=== PATIENT | male | born 1935 | race Caucasian/White ===

== ENCOUNTER 2024-03-18 13:05 | Emergency (ER) | payer OTHER, MEDICARE ==
[2024-03-18 14:08] LABS: Absolute Lymphocytes (CBC) 0.5 K/uL (0.7-4.9); Absolute Monocytes 1.1 K/uL (0.1-1.3); Absolute Neutrophil 13.4 K/uL (1.8-8.0); Basophils % 0.1 % (0-1.3); Hematocrit 30.5 % (39.6-49.0); Hemoglobin 10.1 g/dL (13.6-17.9); Lymphocytes % 3.6 % (15.3-44.8); MCHC 33.1 g/dL (32.0-36.0); MCV 93.9 fL (80-100); MPV 8.1 fL (7.6-11.3); Monocytes % 7.4 % (3.3-12.3); Neutrophils % 88.9 % (41.7-73.7); Platelets 188 thou/uL (152-406); RBC Red Blood Cell Count 3.25 M/uL (4.33-5.43); Red Cell Distribution Width 14.9 % (12.1-15.2)
[2024-03-18 14:10] LABS: PT Prothrombin Time 12.4 SECONDS (9.4-12.5); Protime INR 1.11
[2024-03-18 14:33] LABS: Albumin 2.5 g/dL (3.4-5.0); Albumin/Globulin Ratio 0.8 (1.1-1.8); Anion Gap 12.2 mEq/L (5.0-15.0); Bilirubin Direct 0.3 mg/dL (0-0.2); Bilirubin Indirect, Calculated 0.3 mg/dL (0.2-0.8); Bilirubin Total 0.6 mg/dL (0.2-1.0); Globulin 3.3 g/dL (2.3-3.5); Magnesium 1.6 mg/dL (1.6-2.4); Potassium 4.2 mEq/L (3.5-5.1); Protein, Total 5.8 g/dL (6.4-8.2); Troponin High Sensitivity 21.5 pg/mL (<58.9)
--- NOTE | 2024-03-18 14:54 | RAD REPORT ---
EXAMINATION: ONE VIEW CHEST XR CLINICAL INDICATION: Male, 88 years old.,weakness TECHNIQUE: Frontal chest projection is submitted. Examination is limited by patient positioning and t echnique. COMPARISON: 11/01/2013 FINDINGS: Patchy right mid to lower lung opacities. Central interstitial prominence. Decreased inspiratory effo rt limits evaluation. The right chest wall Port-A-Cath in place. Left pacer/AICD in place. No pneumothorax or sizable effusion. The heart is normal in size. Mediastinal contours are unchanged wit h sequelae of median sternotomy. IMPRESSION: Findings suggesting central venous congestion. Right mid to lower lung patchy opacities raise concern for pneumonia until proven otherwise.
[2024-03-18 14:55] LABS: Specific Gravity 1.026 (1.005-1.030); Sqamous Epithelial None Seen /HPF (None Seen); Urine Bacteria <20 /HPF (<20); Urine Bilirubin NEGATIVE (Negative); Urine Blood Negative (Negative); Urine Clarity Clear (Clear); Urine Color Yellow (Yellow); Urine Culture Reflex Order NOT NEEDED; Urine Glucose NEGATIVE (Negative); Urine Ketones NEGATIVE (Negative); Urine Micro Reflex YN NO BILL MICROSCOPIC; Urine Mucus Slight /HPF (None Seen); Urine Nitrite NEGATIVE (Negative); Urine Protein NEGATIVE (Negative); Urine RBC <5 /HPF (None Seen); Urine Urobilinogen Normal (Normal); Urine WBC <5 /HPF (<5)
[2024-03-18 15:00] LABS: Atypical Lymphocytes 2 %; Band Neutrophils 1 % (0-1); Blood Morphology Comment NOT SEEN (NOT SEEN); Differential Total Cells Count 100; Lymphocytes 5 % (15-42); Monocytes 2 % (0-10); Platelet Estimate ADEQ; Segmented Neutrophils 89 % (40-80); Smudge Cells PRESENT
--- NOTE | 2024-03-18 15:03 | RAD REPORT ---
EXAM: CT Head Brain Wo Cont HISTORY: WEAKNESS COMPARISON: 11/01/2013 TECHNIQUE: Multiple contiguous axial images were obtained for a CT of the brain without contrast. Sag ittal and coronal reformats were performed. One or more of the following dose reduction techniques were used: Automated exposure control, adjus tment of the mA and kV according to patient size, and iterative reconstruction. Unless otherwise specified, incidental findings do not require dedicated imaging follow-up. FINDINGS: No evidence of hydrocephalus, intracranial hemorrhage, or extra-axial fluid collection. Mild diffuse parenchymal atrophy with mild periventricular and deep white matter chronic microvascul ar ischemic changes present. No evidence of an acute infarct. The calvarium is intact. The visualized paranasal sinuses and mastoid air cells are essentially clear . IMPRESSION: No evidence of acute intracranial abnormality.
--- NOTE | 2024-03-18 15:51 | EDPHYS ---
Physician Documentation [facility] Name: Rohan Rico Sr Age: 88 yrs Sex: Male : 1935 Arrival Date: 03/18/2024 Time: 13:05 Bed 19 Private MD: ED Physician Osmar Rowe HPI: 03/18 13:25 This 88 yrs old Male presents to ER via EMS with complaints of Fall Injury, General cp Weakness. 13:25 Details of fall: The patient fell from an upright position. cp 13:25 Onset: The symptoms/episode began/occurred today, 2 episode when getting out of bed. cp Associated injuries: The patient sustained no obvious injury. Historical: - Allergies: 13:17 PENICILLINS; me1 - PMHx: 13:17 Hypertensive disorder; Hypothyroidism; Gastroesophageal reflux disease; me1 Hypercholesterolemia; - Immunization history:: Adult Immunizations up to date. - Infectious Disease History:: Denies. - Social history:: Smoking status: Patient denies any tobacco usage or history of. ROS: 13:30 Constitutional: Negative for fever, cp 13:30 Cardiovascular: Negative for chest pain, edema, palpitations, cp 13:30 Respiratory: Negative for cough, 13:30 Abdomen/GI: Negative for abdominal pain, black/tarry stool, rectal bleeding, 13:30 Neuro: Positive for weakness, Negative for altered mental status, headache, syncope, Exam: 13:33 Constitutional: The patient appears in no acute distress, alert, awake, cp non-diaphoretic, non-toxic, well developed, well nourished, 13:33 Head/Face: Normocephalic, atraumatic. cp 13:33 Eyes: Periorbital structures: appear normal, Conjunctiva: normal, no exudate, no injection, Sclera: no appreciated abnormality, Lids and lashes: appear normal, bilaterally, 13:33 ENT: External ear(s): are unremarkable, Nose: is normal, Mouth: Lips: moist, Oral mucosa: moist, Posterior pharynx: Airway: no evidence of obstruction, patent, 13:33 Chest/axilla: Inspection: normal, 13:33 Cardiovascular: Rate: normal, Rhythm: regular, Edema: is not appreciated, JVD: is not appreciated, 13:33 Respiratory: the patient does not display signs of respiratory distress, Respirations: normal, no use of accessory muscles, no retractions, labored breathing, is not present, Breath sounds: are clear throughout, no decreased breath sounds, no stridor, no wheezing, 13:33 Abdomen/GI: Inspection: abdomen appears normal, Palpation: abdomen is soft and non-tender, in all quadrants, 13:33 Back: pain, is absent, 13:33 Skin: cellulitis, is not appreciated, no rash present. 13:33 Neuro: Orientation: to person, place \T\ time. Mentation: able to follow commands, Motor: moves all fours, no focal deficits, 14:10 ECG was reviewed by the Attending Physician. Vital Signs: 13:09 BP 118 / 51; Pulse 78; Resp 16; Temp 98.6; Pulse Ox 100% on R/A; Weight 69.85 kg; me1 Height 5 ft. 11 in. ; 13:30 BP 124 / 47; Pulse 78; Resp 16; Temp 99.6(A); Pulse Ox 97% on R/A; me1 14:00 BP 136 / 57; Pulse 79; Resp 13; Pulse Ox 96% on R/A; me1 15:00 BP 135 / 85; Pulse 75; Resp 13; Pulse Ox 97% ; me1 16:00 BP 138 / 84; Pulse 88; Resp 17; Pulse Ox 97% ; me1 17:00 BP 128 / 53; Pulse 72; Resp 15; Pulse Ox 96% ; me1 18:00 BP 131 / 63; Pulse 74; Resp 17; Pulse Ox 97% ; me1 19:00 BP 133 / 65; Pulse 72; Resp 13; Temp 98.4; Pulse Ox 96% on R/A; me1 20:00 BP 122 / 64; Pulse 75; Resp 14; Pulse Ox 98% ; me1 20:30 BP 116 / 65; Pulse 75; Resp 17; Temp 98.2; Pulse Ox 96% ; nd1 13:09 Body Mass Index 21.48 (69.85 kg, 180.34 cm) [facility] [place]DM: 13:11 Medical Screening Exam initiated cp 16:00 Data reviewed: vital signs, nurses notes, EKG, radiologic studies, CT scan, plain films. 03/18 13:22 Order name: Basic Metabolic Panel; Complete Time: 14:34 03/18 14:34 Interpretation: Normal except: CL 114; BUN 30; CRE 1.70; GFR 38. cp 03/18 13:22 Order name: CBC with Diff; Complete Time: 15:47 cp 03/18 14:33 Interpretation: Normal except: WBC 15.10; RBC 3.25; HGB 10.1; HCT 30.5; KURT% 88.9; LYM% cp 3.6; NEUT A 13.4; LYMA 0.5. 03/18 13:22 Order name: LFT's; Complete Time: 14:34 cp 03/18 15:53 Interpretation: Normal except: BILID 0.3; TP 5.8; ALB 2.5; A/G 0.8. cp 03/18 13:22 Order name: Magnesium; Complete Time: 14:34 cp 03/18 13:22 Order name: NT PRO-BNP; Complete Time: 14:34 cp 03/18 15:54 Interpretation: Reviewed. cp 03/18 13:22 Order name: PT-INR; Complete Time: 14:33 cp 03/18 13:22 Order name: Troponin HS; Complete Time: 14:34 cp 03/18 13:22 Order name: Urinalysis W/Microscopic; Complete Time: 15:47 cp 03/18 14:11 Order name: Manual Differential; Complete Time: 15:47 EDMS 03/18 14:37 Order name: Blood Culture Adult (2) cp 03/18 14:37 Order name: Lactate w/ 2H reflex if indic. cp 03/18 13:22 Order name: CT Head Brain wo Cont; Complete Time: 15:47 cp 03/18 13:22 Order name: XRAY Chest (1 view); Complete Time: 15:47 cp 03/18 15:48 Interpretation: Report review. cp 03/18 14:35 Order name: CT Chest Abdomen Pelvis W/O Contrast; Complete Time: 15:58 cp 03/18 13:22 Order name: EKG; Complete Time: 13:23 cp 03/18 13:22 Order name: Cardiac monitoring; Complete Time: 14:15 cp 03/18 13:22 Order name: EKG - Nurse/Tech; Complete Time: 14:15 cp 03/18 13:22 Order name: IV Saline Lock; Complete Time: 13:23 cp 03/18 13:22 Order name: Labs collected and sent; Complete Time: 13:59 cp 03/18 13:22 Order name: O2 Per Protocol; Complete Time: 13:23 cp 03/18 13:22 Order name: O2 Sat Monitoring; Complete Time: 13:23 cp 03/18 14:37 Order name: Accucheck; Complete Time: 15:52 cp 03/18 14:37 Order name: IV Saline Lock - Large Bore; Complete Time: 14:55 cp 03/18 14:37 Order name: Vital Signs; Complete Time: 14:55 cp EC:10 Rate is 78 beats/min. Rhythm is regular. NH interval is normal. QRS interval is normal. cp QT interval is normal. T waves are Inverted in lead aVR. Interpreted by me. Reviewed by me. Administered Medications: 13:23 Drug: NS 0.9% IV 1000 ml IV at 1000 ml once; to be given as a bolus over 60 minutes me1 Route: IV; Rate: 1000 ml; Site: right forearm; 13:59 Follow up: Response: No adverse reaction; IV Status: Completed infusion; IV Intake: me1 1000ml 16:06 Drug: levofloxacin IVPB 750 mg 150 ml IVPB once over 90 mins Volume: 150 ml; Route: me1 IVPB; Infused Over: 90 mins; Site: right antecubital; 17:36 Follow up: Response: No adverse reaction; IV Status: Completed infusion; IV Intake: me1 150ml Disposition: 03/19 09:09 Co-signature as Attending Physician, Osmar Rowe MD I reviewed the patient's care rn provided by the Advanced Practice Provider and agree with the diagnosis and treatment plan. Disposition Summary: 03/18/24 15:50 Transfer Ordered Notes: Transfer Location: [facility] cp Reason: Higher level of care cp Condition: Stable cp Problem: new cp Symptoms: have improved cp Accepting Physician: DR Gates(03/18/24 20:48) me1 Diagnosis - Weakness cp - Pneumonia, unspecified organism cp - Ileus, unspecified cp Forms: - Medication Reconciliation Form cp - SBAR form cp Signatures: Dispatcher [employer] Osmar Hopkins MD MD rn Page, Corey, PA PA cp Jada Guerin RN RN me1 Corrections: (The following items were deleted from the chart) 03/18 13:23 13:23 Head Brain Wo Cont+CT.RAD.BRZ ordered. EDMS EDMS 13:23 13:23 BASIC METABOLIC PANEL+C.LAB.BRZ ordered. EDMS EDMS 13:23 13:23 CBC+H.LAB.BRZ ordered. EDMS EDMS 13:23 13:23 HEPATIC FUNCTION+C.LAB.BRZ ordered. EDMS EDMS 13:23 13:23 MAGNESIUM+C.LAB.BRZ ordered. EDMS EDMS 13:23 13:23 PROBNP+C.LAB.BRZ ordered. EDMS EDMS 13:23 13:23 PROTIME (+INR)+COAG.LAB.BRZ ordered. EDMS EDMS 13:23 13:23 Troponin High Sensitivity+C.LAB.BRZ ordered. EDMS EDMS 13:23 13:23 Urinalysis W/Microscopic+U.LAB.BRZ ordered. EDMS EDMS 15:59 15:50 Doctor cp cp 19:44 15:59 Doctor cp cp 20:48 19:44 DR Gates cp me1
--- NOTE | 2024-03-18 15:51 | ER ---
Nurse's Notes [facility] Name: Rohan Rico Sr Age: 88 yrs Sex: Male : 1935 Arrival Date: 03/18/2024 Time: 13:05 Bed 19 Private MD: Diagnosis: Weakness;Pneumonia, unspecified organism;Ileus, unspecified Presentation: 03/18 13:09 Chief complaint: EMS states: toned out for fall from sitting position on bed x 2 this me1 morning. No LOC. Blood thinners were stopped a few weeks ago. c/o generalized weakness. Treatment for colorectal cancer was recently stopped due to adverse reactions including rash and nausea. + orthostatic vitals. BGL 106. Patient states he hasnt eating since yesterday due to nausea. 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 Coronavirus screen: Vaccine status: Patient reports receiving the 2nd dose of the covid vaccine. Ebola Screen: No symptoms or risks identified at this time. Initial Sepsis Screen: Does the patient meet any 2 criteria? No. Patient's initial sepsis screen is negative. Does the patient have a suspected source of infection? No. Patient's initial sepsis screen is negative. Risk Assessment: Do you want to hurt yourself or someone else? Patient reports no desire to harm self or others. Onset of symptoms is unknown. 13:09 Method Of Arrival: EMS: [place] [id number] 13:09 Acuity: LORY 3 me1 Triage Assessment: 13:17 General: Appears comfortable, slender, well groomed, well developed, Behavior is calm, me1 cooperative, appropriate for age, Reports s/p fall x 2 this morning. c/o generalized weakness due to cancer and treatment. Pain: Denies pain. EENT: No signs and/or symptoms were reported regarding the EENT system. Neuro: Level of Consciousness is awake, alert, obeys commands, Oriented to person, place, time, situation, Appropriate for age. Cardiovascular: Patient's skin is warm and dry. Respiratory: Airway is patent Respiratory effort is even, unlabored, Respiratory pattern is regular, symmetrical. GI: No signs and/or symptoms were reported involving the gastrointestinal system. : No signs and/or symptoms were reported regarding the genitourinary system. Derm: Skin is healthy with good turgor, Skin is pale. Musculoskeletal: Reports generalized weakness. Injury Description: s/p fall from sitting position in bed x 2 today. Historical: - Allergies: 13:17 PENICILLINS; me1 - PMHx: 13:17 Hypertensive disorder; Hypothyroidism; Gastroesophageal reflux disease; me1 Hypercholesterolemia; - Immunization history:: Adult Immunizations up to date. - Infectious Disease History:: Denies. - Social history:: Smoking status: Patient denies any tobacco usage or history of. Screenin:21 [facility] ED Fall Risk Assessment (Adult) History of falling in the last 3 months, me1 including since admission Yes- fall prone (multiple falls) (3 pts) Confusion or Disorientation No (0 pts) Intoxicated or Sedated No (0 pts) Impaired Gait Yes (1 pt) Mobility Assist Device Used Yes (1 pt) Altered Elimination No (0 pt) Score/Fall Risk Level 3 or more points = High Risk Maintained a safe environment, Hourly rounding (assess needs \T\ fall precautionary measures) done, Used ambulatory aids as needed (educated on \T\ assisted with). Abuse screen: Denies threats or abuse. Nutritional screening: No deficits noted. Tuberculosis screening: No symptoms or risk factors identified. Assessment: 13:21 General: See triage assessment.. me1 Vital Signs: 13:09 BP 118 / 51; Pulse 78; Resp 16; Temp 98.6; Pulse Ox 100% on R/A; Weight 69.85 kg; me1 Height 5 ft. 11 in. ; 13:30 BP 124 / 47; Pulse 78; Resp 16; Temp 99.6(A); Pulse Ox 97% on R/A; me1 14:00 BP 136 / 57; Pulse 79; Resp 13; Pulse Ox 96% on R/A; me1 15:00 BP 135 / 85; Pulse 75; Resp 13; Pulse Ox 97% ; me1 16:00 BP 138 / 84; Pulse 88; Resp 17; Pulse Ox 97% ; me1 17:00 BP 128 / 53; Pulse 72; Resp 15; Pulse Ox 96% ; me1 18:00 BP 131 / 63; Pulse 74; Resp 17; Pulse Ox 97% ; me1 19:00 BP 133 / 65; Pulse 72; Resp 13; Temp 98.4; Pulse Ox 96% on R/A; me1 20:00 BP 122 / 64; Pulse 75; Resp 14; Pulse Ox 98% ; me1 20:30 BP 116 / 65; Pulse 75; Resp 17; Temp 98.2; Pulse Ox 96% ; me1 13:09 Body Mass Index 21.48 (69.85 kg, 180.34 cm) id1 ED Course: 13:09 Patient arrived in ED. me1 13:11 Shin Urias PA is PHCP. cp 13:11 Osmar Rowe MD is Attending Physician. cp 13:16 Triage completed. me1 13:17 Arm band placed on Patient placed in an exam room. me1 13:21 Patient has correct armband on for positive identification. Bed in low position. Call [facility] light in reach. Side rails up X2. Provided Education on: POC. Verbalized understanding.. Client placed on continuous cardiac and pulse oximetry monitoring. NIBP monitoring applied. classroom monitor on. Pulse ox on. NIBP on. 13:21 No provider procedures requiring assistance completed. Maintain EMS IV. Dressing me1 intact. Good blood return noted. Site clean \T\ dry. Gauge \T\ site: 20g RFA. Flushed with 10 mL NS. 13:58 Jada Guerin, RN is Primary Nurse. me1 13:59 Basic Metabolic Panel Sent. me1 13:59 CBC with Diff Sent. me1 13:59 LFT's Sent. me1 13:59 Magnesium Sent. me1 13:59 NT PRO-BNP Sent. me1 13:59 PT-INR Sent. me1 13:59 Troponin HS Sent. me1 14:13 XRAY Chest (1 view) In Process Unspecified. EDMS 14:15 EKG done, by ED staff, reviewed by Shin ROBLES. me1 14:19 CT Head Brain wo Cont In Process Unspecified. EDMS 15:02 CT Chest Abdomen Pelvis W/O Contrast In Process Unspecified. EDMS 15:48 Initial lab(s) drawn, by id, sent to lab. First set of blood cultures drawn by id. me1 15:51 Inserted saline lock: 22 gauge in right antecubital area, using aseptic technique. me1 15:52 Lactate w/ 2H reflex if indic. Sent. me1 15:52 Blood Culture Adult (2) Sent. me1 16:01 Second set of blood cultures drawn by id. me1 16:09 Blood Culture Adult (2) Sent. me1 16:14 [facility] talked to Lisa. mccollum 17:30 called [facility] to follow up on transfer.--talked to Emilie. nelly mccollum again. 19:56 Patient transferred, IV remains in place. me1 Administered Medications: 13:23 Drug: NS 0.9% IV 1000 ml IV at 1000 ml once; to be given as a bolus over 60 minutes me1 Route: IV; Rate: 1000 ml; Site: right forearm; 13:59 Follow up: Response: No adverse reaction; IV Status: Completed infusion; IV Intake: me1 1000ml 16:06 Drug: levofloxacin IVPB 750 mg 150 ml IVPB once over 90 mins Volume: 150 ml; Route: me1 IVPB; Infused Over: 90 mins; Site: right antecubital; 17:36 Follow up: Response: No adverse reaction; IV Status: Completed infusion; IV Intake: me1 150ml Medication: 13:21 VIS not applicable for this client. me1 Intake: 13:59 IV: 1000ml; Total: 1000ml. me1 17:36 IV: 150ml; Total: 1150ml. me1 Outcome: 15:50 ER care complete, transfer ordered by . cp 19:56 Transferred by ground EMS to [facility], Transfer form completed. me1 Note: community integration specialist. Report called to HEIDE Nieto 19:56 Condition: stable 19:56 Instructed on the need for transfer, 20:48 Patient left the ED. me1 Signatures: Dispatcher [employer] EDMS No Wilkerson Corey, PA PA cp Eddleman, Michelle, RN RN me1
--- NOTE | 2024-03-18 15:54 | RAD REPORT ---
EXAM: CT CHEST, ABDOMEN AND PELVIS WITHOUT CONTRAST CLINICAL INDICATION: Male, 88 years old. [facility] weakness Bed Name: 19 TECHNIQUE: CT chest, abdomen and pelvis was performed, without IV contrast, as per department protoco l. Axial, sagittal and coronal reconstructions were obtained. One or more of the following dose reduction techniques were used: Automated exposure control, adjustment of the mA and/or kV according to the patient size, and/or iterative reconstruction. Unless otherwise specified, incidental findings do not require dedicated imaging follow-up. COMPARISON: No prior exam. FINDINGS: The lack of intravenous contrast limits the sensitivity of this exam for evaluation of solid visceral organs, vascular structures, and retroperitoneum. Chest: LOWER NECK/CHEST WALL: Visualized thyroid gland and soft tissues are normal. LUNGS AND AIRWAYS: Airways are clear. Patchy airspace opacities throughout the right lung. Lingular p latelike atelectasis. Indeterminate subpleural basal left lower lobe ovoid 7 mm nodule. No other suspicious nodules. PLEURA: No pleural effusion. No pneumothorax. Hemidiaphragms are normally positioned. 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 Left chest wa ll pacer in place. No mediastinal mass or fluid collection. Normal size mediastinal, hilar, and axillary lymph nodes. THORACIC AORTA: Normal caliber and configuration. PULMONARY ARTERIES: Normal caliber. HEART: Unremarkable. Abdomen/Pelvis LIVER: Normal in size and contour. No focal lesion. GALLBLADDER/BILE DUCTS: No gallbladder is visualized, could be surgically removed or decompressed. No biliary ductal dilatation. PANCREAS: No mass, ductal dilation, or daniel-pancreatic fluid. SPLEEN: Normal size. No focal lesion. ADRENALS: Normal; no mass. KIDNEYS AND URETERS: 2 mm nonobstructing right mid to lower pole calculus. Normal size and contour. N o hydronephrosis. GASTROINTESTINAL TRACT: Stomach is non-dilated. Small bowel shows wall segments of distention with ai r-fluid levels along the right flank. No focal transition point. No colonic wall thickening or pericolonic inflammatory changes. PERITONEUM: No free fluid. LYMPH NODES: No lymphadenopathy. ABDOMINAL AORTA AND OTHER VESSELS: Normal caliber aorta and IVC. URINARY BLADDER: Normal contour. REPRODUCTIVE ORGANS: No pathologic process. MUSCULOSKELETAL: No acute or suspicious osseous abnormality. ADDITIONAL FINDINGS: None IMPRESSION: No acute traumatic abnormalities in the chest, abdomen, or pelvis. Patchy airspace opacities throughout the right lung, concerning for multifocal pneumonitis. Long segments of small bowel fluid distention and air-fluid levels, suggest mild ileus. Incidentally noted 7 mm peripheral left lower lobe nodule, favored to be benign. This can be followed on CT chest in 12 months to ensure stability or resolution.
[2024-03-18] MEDS ORDERED: Levofloxacin 750mg IV 750 MG/150 ML BAG IV ONE (16:05)
[2024-03-20 16:17] VITALS: BP 116/65; TEMP 98.2; O2SAT 96
--- NOTE | 2024-03-22 12:10 | EKG ---
Test Date: 2024-03-18 Test Time: 14:05:43 Film Producer: MEASUREMENT RESULTS: Intervals: Rate: 78 DE: 194 QRSD: 94 QT: 396 QTc: 451 [place]: P: 67 DE: 194 QRS: 17 T: 45 INTERPRETIVE STATEMENTS: Normal sinus rhythm Normal ECG Compared to ECG 11/01/2013 06:59:24 No significant changes Electronically Signed On 03-22-24 12:08:04 BOBCAT OPERATOR by Jim Clark
== END 2024-03-18 20:48 | disposition short-term general hospital (02) ==
LOC: ER 13:05
DX: R53.1 Weakness (principal); J18.9 Pneumonia, unspecified organism; K56.7 Ileus, unspecified; W19.XXXA Unspecified fall, initial encounter; I10 Essential (primary) hypertension; E03.9 Hypothyroidism, unspecified; E78.00 Pure hypercholesterolemia, unspecified; K21.9 Gastro-esophageal reflux disease without esophagitis; Z88.0 Allergy status to penicillin
CPT/HCPCS: 36415; 70450; 71045; 71250; 74176; 80048; 80076; 81001; 83605; 83735; 83880; 84484; 85025; 85610; 87040; 93005; 96361; 96365; 99285